=== PATIENT | male | born 1970 | race Caucasian/White ===

== ENCOUNTER 2020-12-14 15:33 | Emergency (ER) | payer SELFPAY ==
[~2020-12-14] VITALS: Ht 193 cm; Wt 102.2 kg
--- NOTE | 2020-12-14 16:14 | NUR ---
ASSUMED CARE OF PATIENT. PATIENT REPORTS LUQ ABD PAIN. VS STABLE. NO ACUTE DISTRESS NOTED. ELIAS MILLS IN ROOM. CALL LIGHT IN PLACE. WILL CONTINUE TO MONITOR.
[2020-12-14 16:46] LABS: BASOPHILS % (AUTO) 1 % (0-1); EOSINOPHILS % (AUTO) 5 % (1-7); LYMPHOCYTES % (AUTO) 20 % (22-44); MEAN CORPUSCULAR HEMOGLOBIN 31.1 pg (27.5-34.5); MEAN PLATELET VOLUME 6.5 fL (7.4-10.4); MONOCYTES % (AUTO) 11 % (2-9); NEUTROPHILS % (AUTO) 63 % (42-75); PLATELET COUNT 316 x10^3/uL (130-400); RED BLOOD COUNT 4.25 x10^6/uL (4.38-5.82); RED CELL DISTRIBUTION WIDTH 13.1 % (9.4-14.8)
[2020-12-14 16:48] LABS: MD NO
[2020-12-14 16:58] LABS: ANION GAP 5 mmol/L (5-15); CALCIUM 8.5 mg/dL (8.5-10.1); CHLORIDE 105 mmol/L (98-107); CREATININE 1.04 mg/dL (0.7-1.3)
[2020-12-14 16:59] LABS: ALANINE AMINOTRANSFERASE 21 U/L (12-78); ALBUMIN 3.4 g/dL (3.4-5.0)
[2020-12-14 17:01] LABS: ALKALINE PHOSPHATASE 118 U/L (45-117); BILIRUBIN,TOTAL 0.2 mg/dL (0.2-1.0); TOTAL PROTEIN 7.2 g/dL (6.4-8.2)
--- NOTE | 2020-12-14 17:26 | NUR ---
PT IN CT
[2020-12-14 17:28] LABS: MICROSCOPIC NOT IND
[2020-12-14] MEDS ORDERED: OMNIPAQUE 350 MG/ML, 100ML BOTTLE ONE (17:37)
--- NOTE | 2020-12-14 18:35 | NUR ---
PT RESTING IN ROOM. NO ACUTE DISTRESS NOTED. CALL LIGHT IN PLACE. WILL CONTINUE TO MONITOR.
--- NOTE | 2020-12-14 18:47 | NUR ---
ELIAS MILLS HAS UPDATED PATIENT
[2020-12-14] MEDS ORDERED: PANTOPRAZOLE 40MG TABLET PO ONE (19:00)
[2020-12-14] MEDS ORDERED: MAALOX/HYOSCYAMINE/LIDOCAINE 45 ML BTL PO ONE (19:00)
--- NOTE | 2020-12-14 19:00 | NUR ---
SHERRIE REPORT FROM JIMBO MIRANDA
--- NOTE | 2020-12-14 19:06 | NUR ---
report given to RUBEN Escamilla
[2020-12-14] MEDS ORDERED: MAALOX/HYOSCYAMINE/LIDOCAINE 45 ML BTL ONE (19:14)
[2020-12-14] MEDS ORDERED: PANTOPRAZOLE 40MG TABLET ONE (19:14)
[2020-12-14] MEDS ORDERED: LISINOPRIL 10 MG TABLET ONE (19:17)
[2020-12-14 19:24] VITALS: BP 188/119
[2020-12-14] MEDS ORDERED: LISINOPRIL 10 MG TABLET PO ONE (19:30)
== END 2020-12-14 19:34 | disposition home or self-care (01) ==
LOC: ED 16:27
DX: R10.13 Epigastric pain (principal); R10.12 Left upper quadrant pain; I10 Essential (primary) hypertension; R11.0 Nausea; F17.210 Nicotine dependence, cigarettes, uncomplicated
CPT/HCPCS: 36415; 74177; 80053; 81003; 83690; 85025; 99285; 99406; Q9967